=== PATIENT | female | born 1935 | race Caucasian/White ===

== ENCOUNTER 2017-01-15 07:46 | Day surgery (SDC) | payer OTHER ==
[2017-01-12 14:19] VITALS: BMI 24.3
[2017-01-15] MEDS ORDERED: LIDOCAINE HCL/PF 2% SDV 5ML VIAL ONE (08:15)
[2017-01-15] MEDS ORDERED: PROPOFOL 20 ML ONE ×2 (08:15)
[2017-01-15 09:02] VITALS: PULSE 60; TEMP 97.8
[2017-01-15 09:45] VITALS: BP 146/60
--- NOTE | 2017-01-16 13:02 | PATH ---
Surgical Pathology Report Patient Name: ANIKET MICHAUD [facility]. Rec. #: [id number] /Age/Gender: 1935 (Age: 81) / F Account: [id number] Location: U-ENDOSCOPY Taken: 01/15/2017 Received: 01/15/2017 Reported: 01/16/2017 Physicians: Leslye Moses M.D. Specimen(s) Received A: BX CECAL POLYP B: BX RIGHT COLON POLYP C: RECTAL/SIGMOID ANASTOMOSIS Clinical History Surveillance, history of colon cancer Colon polyps, patent rectal/sigmoid anastomosis Final Diagnosis A. COLON, CECUM, POLYP, BIOPSY: TUBULAR ADENOMA. B. COLON, RIGHT, POLYPS, BIOPSY: FRAGMENTS OF TUBULAR ADENOMA. C. RECTAL/SIGMOID ANASTOMOSIS, BIOPSY: BENIGN COLONIC MUCOSA WITH FOCAL ARCHITECTURAL DISARRAY CONSISTENT WITH ANASTOMOSIS SITE. NO DYSPLASIA/ADENOMA OR CARCINOMA IDENTIFIED. Electronically Signed Keanu Flores M.D. Gross Description A. Received in formalin, labeled "biopsy cecal polyp" are 4 kline, irregular portions of soft tissue ranging from 0.1-0.3 cm in greatest dimension. The specimens are submitted in toto in one cassette. B. Received in formalin labeled "biopsy right colon polyps" is a 0.7 x 0.5 x 0.1 cm aggregate of kline soft tissue fragments. The formalin is filtered and the specimen is entirely submitted in one cassette. C. Received in formalin, labeled "biopsy rectal sigmoid anastomosis" are 4 kline, irregular portions of soft tissue ranging from 0.3-0.4 cm in greatest dimension. The specimens are submitted in toto in one cassette. 01/15/201701/15/2017
== END 2017-01-15 09:57 | disposition home or self-care (01) ==
LOC: JASU-ENDO 07:46
PROVIDERS: ATTEND Internal Medicine Gastroenterology
PROC: 0DBN8ZX Excision of Sigmoid Colon, Via Natural or Artificial Opening Endoscopic, Diagnostic (ICD-10-PCS; 2017-01-15)
PROC: 0DBH8ZX Excision of Cecum, Via Natural or Artificial Opening Endoscopic, Diagnostic (ICD-10-PCS; 2017-01-15)
PROC: 0DBK8ZX Excision of Ascending Colon, Via Natural or Artificial Opening Endoscopic, Diagnostic (ICD-10-PCS; principal; 2017-01-15 09:00)
DX: Z12.11 Encounter for screening for malignant neoplasm of colon (principal); Z85.038 Personal history of other malignant neoplasm of large intestine; D12.2 Benign neoplasm of ascending colon; D12.0 Benign neoplasm of cecum; K57.30 Diverticulosis of large intestine without perforation or abscess without bleeding; Z98.0 Intestinal bypass and anastomosis status
CPT/HCPCS: 88305-TC

== ENCOUNTER 2017-12-08 19:24 | Emergency (ER) | payer OTHER ==
[2017-12-08 19:30] VITALS: BMI 22.5
--- NOTE | 2017-12-08 19:37 | PDOC ---
History of Present Illness - General History Source: Patient Exam Limitations: No Limitations - History of Present Illness Initial Comments: 12/08/17 20:24 The patient is a 82 year old female, with a significant PMH of hypertension, hyperlipidemia, fibroids, arthritis, pacemaker, who presents to the emergency department via walk-in for evaluation s/p fall 2 hours ago. The patient states she was walking outside when she tripped and fell onto her left side. The patient denies any loss of consciousness and states she was able to get up on her own and ambulate without difficulty after the fall. The patient denies any preceding lightheadedness, dizziness, chest pain, shortness of breath, palpitations, or nausea before the fall. The patient states after the fall she walked inside her house and her family advised her to come to the ED. The patient denies any pain. The patient states she is currently on aspirin. The patient denies chest pain, shortness of breath, headache and dizziness. Denies fever, chills, nausea, vomit, diarrhea and constipation. Denies dysuria, frequency, urgency and hematuria. Allergies: Penicillins Past surgical history: Hysterectomy, C - section. Social history: No reported PCP: Dr Singh <Nik Aleman - Last Filed: 12/08/17 22:29> <Marcelle Barnard - Last Filed: 12/09/17 00:25> - General Chief Complaint: Injury Stated Complaint: FALL INJURY Time Seen by Provider: 12/08/17 19:37 Past History <Nik Aleman - Last Filed: 12/08/17 22:29> - Past Medical History Cancer: Yes (COLON) Cardiac Disorders: Yes (IRREG HEART BEAT, PPM) COPD: No GI Disorders: Yes (DIVEYTICULOSIS;H.PYLOIR;COLON POLYPS) HTN: Yes Hypercholesterolemia: Yes - Surgical History Abdominal Surgery: Yes (COLON RESECTION) Appendectomy: Yes Cardiac Surgery: Yes (PACEMAKER) - Immunization History Immunization Up to Date: Yes - Suicide/Smoking/Psychosocial Hx Smoking Status: No Smoking History: Never smoked Have you smoked in the past 12 months: No Number of Cigarettes Smoked Daily: 0 Hx Alcohol Use: No Drug/Substance Use Hx: No Substance Use Type: None Hx Substance Use Treatment: No <Marcelle Barnard - Last Filed: 12/09/17 00:25> - Past Medical History Allergies/Adverse Reactions: Allergies Allergy/AdvReac Type Severity Reaction Status Date / Time Penicillins Allergy Verified 05/21/12 23:45 Home Medications: Ambulatory Orders Omeprazole 40 mg PO DAILY #1 08/19/11 Amlodipine Besylate [Norvasc -] 2.5 mg PO DAILY 12/07/14 Aspirin Coated [Ecotrin -] 81 mg PO DAILY #0 12/07/14 Calcium Carbonate/Vitamin D3 [Calcium 600-Vit D3 200 Tablet] 1 each PO DAILY 07/19 Cholecalciferol (Vitamin D3) [Vitamin D3] 1,000 unit PO DAILY 12/07/14 FA/Mv,Ca,Iron,Min/Lycopene/Lut [Centrum Tablet] 1 each PO DAILY 12/07/14 Losartan/Hydrochlorothiazide [Losartan-Hctz 100-25 mg Tablet] 1 each PO DAILY Sennosides [Senna -] 1 tab PO DAILY 12/07/14 Simvastatin [Zocor -] 5 mg PO HS 12/07/14 Sotalol HCl [Sotalol] 160 mg PO BID 12/07/14 Review of Systems - Review of Systems Comments:: 12/08/17 20:25 GENERAL/CONSTITUTIONAL: No fever or chills. No weakness. HEAD, EYES, EARS, NOSE AND THROAT: No change in vision. No ear pain or discharge. No sore throat. CARDIOVASCULAR: No chest pain or shortness of breath. RESPIRATORY: No cough, wheezing, or hemoptysis. GASTROINTESTINAL: No nausea, vomiting, diarrhea or constipation. GENITOURINARY: No dysuria, frequency, or change in urination. MUSCULOSKELETAL: No joint or muscle swelling or pain. No neck or back pain. SKIN: No rash NEUROLOGIC: No headache, vertigo, loss of consciousness, or change in strength/ sensation. ENDOCRINE: No increased thirst. No abnormal weight change. HEMATOLOGIC/LYMPHATIC: No anemia, easy bleeding, or history of blood clots. ALLERGIC/IMMUNOLOGIC: No hives or skin allergy. <Nik Aleman - Last Filed: 12/08/17 22:29> *Physical Exam - Vital Signs Last Vital Signs Temp Pulse Resp BP Pulse Ox 98.2 F 80 20 179/82 99 12/08/17 19:27 12/08/17 19:27 12/08/17 19:27 12/08/17 19:27 12/08/17 19:27 - Physical Exam Comments: 12/08/17 22:29 GENERAL: Awake, alert, and fully oriented, in no acute distress HEAD: (+) Hematoma on the left forehead lateral/ above the brow. (+) Bruising at the left upper and lower lids. (+) Tenderness at the left brow. No nasal bone tenderness. No inferior orbital tenderness. No zygoma tenderness on left. EYES: PERRLA, EOMI, sclera anicteric, conjunctiva clear ENT: Auricles normal inspection, hearing grossly normal, nares patent, oropharynx clear without exudates. Moist mucosa NECK: No c-spine tenderness. No neck tenderness. Normal ROM, supple, no lymphadenopathy, JVD, or masses LUNGS: Breath sounds equal, clear to auscultation bilaterally. No wheezes, and no crackles HEART: Regular rate and rhythm, normal S1 and S2, no murmurs, rubs or gallops ABDOMEN: Soft, nontender, normoactive bowel sounds. No guarding, no rebound. No masses EXTREMITIES: (+) Abrasion over the 4th knuckle. Normal range of motion, no edema. No clubbing or cyanosis. No cords, erythema, or tenderness NEUROLOGICAL: Cranial nerves II through XII grossly intact. Normal speech, normal gait. Good strength and reflexes. SKIN: Warm, Dry, normal turgor, no rashes or lesions noted. <Nik Aleman - Last Filed: 12/08/17 22:29> - Vital Signs Last Vital Signs Temp Pulse Resp BP Pulse Ox 98.2 F 80 20 179/82 99 12/08/17 19:27 12/08/17 19:27 12/08/17 19:27 12/08/17 19:27 12/08/17 19:27 <Marcelle Barnard - Last Filed: 12/09/17 00:25> ED Treatment Course - LABORATORY CBC & Chemistry Diagram: 12/08/17 20:08 12/08/17 20:08 - Medications Given in the ED: ED Medications Discontinued Medications Generic Name Dose Route Start Last Admin Trade Name Freq PRN Reason Stop Dose Admin Oxycodone/Acetaminophen 2 combo 12/08/17 20:08 12/08/17 20:20 Percocet 5/325 - PO 12/08/17 20:09 2 combo ONCE ONE Administration <Nik Aleman - Last Filed: 12/08/17 22:29> - LABORATORY CBC & Chemistry Diagram: 12/08/17 20:08 12/08/17 20:08 <Marcelle Barnard - Last Filed: 12/09/17 00:25> Medical Decision Making - Medical Decision Making 12/08/17 22:02 Pt appears to have an intracerebral bleed at the left frontal 12/08/17 22:13 Patient Name: ANIKET MICHAUD THIS IS A PRELIMINARY REPORT FROM [facility] DIRECT[facility] DATE OF SERVICE: 2017-12-08 20:53:56 IMAGES: [id number] Exam: CT head without IV contrast. Clinical indication:Trauma. Comparison:None available. Technique: Axial unenhanced CT images from the skull base through the brain were obtained followed by coronal and sagital reformats. Findings: The visualized bony structures are unremarkable. Note is again made of the hematoma in the left frontal scalp. There is moderate circumference thickening of the mucosa within the left maxillary sinus consistent with chronic sinusitis. Otherwise, the visualized paranasal sinuses and mastoid air cells are clear. There is no evidence of intra-or extra-axial hemorrhage. The ventricles and basilar cisterns are unremarkable. There is an old left frontal encephalomalacia from an old infarct. Areas mild-to -moderate periventricular hypodensities consistent with mild to moderate chronic small vessel ischemic changes. There is no evidence of intracranial mass, acute infarct, or midline shift. 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 2. Mild to moderate chronic small vessel ischemic changes. 3. Chronic left maxillary sinusitis. 4. Otherwise, negative unenhanced CT of the brain. Individualized dose optimization techniques were used for this CT. THIS DOCUMENT HAS BEEN ELECTRONICALLY SIGNED 12/08/17 22:15 Patient Name: ANIKET MICHAUD THIS IS A PRELIMINARY REPORT FROM [facility] DATE OF SERVICE: 2017-12-08 20:55:51 IMAGES: [id number] Exam: CT facial bones without IV contrast. Clinical indication: Trauma. Technique: Axial CT images of the facial bones were obtained followed by coronal and sagittal reformats. Findings: The mandible is intact. Temporomandibular joints are appropriately situated. The maxilla is intact. The orbital rims are intact. The bilateral zygomatic arches are intact. The nasal bones are intact. Visualized portions of the cranial skull and cervical spine are intact. There is moderate circumferential mucosal thickening within the left maxillary sinus suggesting chronic left maxillary sinusitis. Otherwise, the visualized paranasal sinuses and mastoid air cells are clear. There is a left frontal scalp hematoma. Visualized soft tissues are grossly unremarkable. Impression: 1. No acute facial bone fracture. 2. Moderate chronic left maxillary sinusitis. 12/08/17 22:[address] Espitia, pt's PMD, she has a hx of an old infarct/frontal bleed. I will discuss the CT with neurosurgeon. Pt's exam is normal, labs are normal, and CT scans demonstate no acute fx or finding. 12/08/17 22:26 Patient Name: ANIKET MICHAUD THIS IS A PRELIMINARY REPORT FROM [facility] DATE OF SERVICE: 2017-12-08 20:50:31 IMAGES: [id number] Exam: CT cervical spine without IV contrast. Clinical indication:Trauma. Prior studies:None available. Technique: Axial unenhanced CT images from the upper thoracic spine through the skull base were obtained followed by coronal and sagittal reformats. Findings: There is no prevertebral soft tissue swelling. The alignment of the cervical spine is within normal limits. The odontoid is intact. The atlantooccipital and atlantoaxial articulations are properly situated. There are no cervical fractures or dislocations. There is multilevel cervical degenerative disc disease seen throughout the cervical spine, but no definite significant spinal stenosis or neural foraminal narrowing. Visualized pulmonary parenchyma and soft tissues are unremarkable. Impression: No acute cervical fracture. Individualized dose optimization techniques were used for this CT. THIS DOCUMENT HAS BEEN ELECTRONICALLY SIGNED 12/09/17 00:24 Case d/w neurosurg, who reveied the CT from 2009 that demonstrates the old frontal stroke. Pt will be discharged home with follow up with Dr. Singh <Marcelle Barnard - Last Filed: 12/09/17 00:25> *DC/Admit/Observation/Transfer - Attestations Scribe Attestion: 12/08/17 20:25 Documentation prepared by Nik Aleman, acting as bilingual medical assistant for Marcelle Barnard MD. <Nik Aleman - Last Filed: 12/08/17 22:29> - Discharge Dispostion Decision to Admit order: No <Marcelle Barnard - Last Filed: 12/09/17 00:25> Diagnosis at time of Disposition: Head contusion - Discharge Dispostion Disposition: HOME Condition at time of disposition: Stable - Referrals Referrals: Reji Singh MD [Staff Physician] - - Patient Instructions Printed Discharge Instructions: Closed Head Injury, Post-Traumatic Headache
[2017-12-08 20:23] LABS: BASO % 0.7 % (0-2.0); EOS % 3.2 % (0-4.5); HEMATOCRIT 37.5 % (32.4-45.2); HEMOGLOBIN 13.3 GM/dL (10.7-15.3); LYMPH % 18.4 % (8-40); MCH 28.7 pg (25.7-33.7); MCHC 35.4 g/dl (32.0-36.0); MEAN PLT VOLUME 7.7 fl (7.5-11.1); MONO % 7.1 % (3.8-10.2); NEUT % 70.6 % (42.8-82.8); PLATELET COUNT 209 K/MM3 (134-434); RBC 4.63 M/mm3 (3.60-5.2); RDW 14.7 % (11.6-15.6); WHITE BLOOD COUNT 5.4 K/mm3 (4.0-10.0)
[2017-12-08 20:53] LABS: ANION GAP 10 (8-16); BILIRUBIN,TOTAL 0.4 mg/dL (0.2-1.0); BLOOD UREA NITROGEN 15 mg/dL (7-18); CALCIUM 10.1 mg/dL (8.5-10.1); CHLORIDE 98 mmol/L (98-107); CO2 26 mmol/L (21-32); CREATININE 0.7 mg/dL (0.55-1.02); GLUCOSE,RANDOM 141 mg/dL (74-106); POTASSIUM 3.8 mmol/L (3.5-5.1); SGOT/AST 22 U/L (15-37); SGPT/ALT 27 U/L (12-78); SODIUM 134 mmol/L (136-145); TOT PROT 6.8 g/dl (6.4-8.2)
[2017-12-08 20:54] LABS: ALK PHOS 121 U/L (45-117)
[2017-12-08 21:53] LABS: URINE APPEARANCE CLEAR; URINE BILIRUBIN NEGATIVE (<2.0 mg/dL); URINE COLOR LTYELLOW; URINE GLUCOSE (UA) NEGATIVE (NEGATIVE); URINE KETONE NEGATIVE (NEGATIVE); URINE NITRITE NEGATIVE (NEGATIVE); URINE PROTEIN NEGATIVE (NEGATIVE); URINE UROBILINOGEN NEGATIVE mg/dL (0.2-1.0)
[2017-12-08 21:56] LABS: URINE LEUK ESTERASE 1+ (NEGATIVE)
[2017-12-08 21:58] LABS: EPI CELLS RARE /HPF (FEW); URINE MUCUS RARE
[2017-12-08] MEDS ORDERED: DIPHTH,PERTUSS(ACELL),TET VAC 0.5 ML VIAL IM ONE (22:24)
[2017-12-08] MEDS ORDERED: BACITRACIN 15 GM TUBE TOPICAL OINTMENT TP ONE (23:37)
[2017-12-08] MEDS ORDERED: BACITRACIN 0.9 GM PACKET ONE (23:40)
[2017-12-08 23:54] VITALS: BP 133/72; PULSE 69; TEMP 97.9
--- NOTE | 2017-12-09 20:03 | EKG ---
Test Reason : Blood Pressure : / mmHG Vent. Rate : 065 BPM Atrial Rate : 065 BPM P-R Int : 142 ms QRS Dur : 118 ms QT Int : 408 ms P-R-T Axes : 103 048 020 degrees QTc Int : 424 ms POOR DATA QUALITY, INTERPRETATION MAY BE ADVERSELY AFFECTED NORMAL SINUS RHYTHM INCOMPLETE RIGHT BUNDLE BRANCH BLOCK BORDERLINE ECG WHEN COMPARED WITH ECG OF 21-MAY-2012 23:55, INCOMPLETE RIGHT BUNDLE BRANCH BLOCK HAS REPLACED RIGHT BUNDLE BRANCH BLOCK QT HAS SHORTENED Confirmed by RADHA PLAZA, CAMILA ([id number]) on 12/09/2017 8:03:01 PM Referred By: Confirmed By:CAMILA GARCIA MD
== END 2017-12-08 23:53 | disposition home or self-care (01) ==
LOC: JER 19:24
PROC: 3E0234Z Introduction of Serum, Toxoid and Vaccine into Muscle, Percutaneous Approach (ICD-10-PCS; principal; 2017-12-08)
DX: S00.93XA Contusion of unspecified part of head, initial encounter (principal); W18.39XA Other fall on same level, initial encounter; Y93.89 Activity, other specified; Y92.009 Unspecified place in unspecified non-institutional (private) residence as the place of occurrence of the external cause; Z95.0 Presence of cardiac pacemaker; Z85.038 Personal history of other malignant neoplasm of large intestine; I10 Essential (primary) hypertension; E78.00 Pure hypercholesterolemia, unspecified; I49.9 Cardiac arrhythmia, unspecified
CPT/HCPCS: 36415; 70450-TC; 70486-TC; 71046-TC-FY; 72125-TC; 73130-TC-RT-FY; 73610-TC-LT-FY; 73630-TC-LT; 80053; 81003; 81015; 82550; 84484; 85025; 93005; 93010; 99282-25

== ENCOUNTER 2019-12-22 13:36 | Inpatient (IN) | payer OTHER ==
--- NOTE | 2019-12-22 15:15 | PDOC ---
History of Present Illness - General Chief Complaint: Injury Stated Complaint: SLIP AND FALL Time Seen by Provider: 12/22/19 14:59 - History of Present Illness Initial Comments: HPI Pt is a 84yo F with PMH HTN,HLD who presents following fall. Pt states that she was walking in her condo around 11am when she slipped and fell. Denies any loss of consciousness. States that she fell onto her left side and is reporting L wrist/forearm pain and L hip pain. States that she cannot move her left leg due to pain and has been unable to ambulate since injury. Initially denied head trauma, but when asked about hematoma on eyebrow, states that she may have injured the left side of her head. Denies use of blood thinners. Denies any f/c, headache, neck pain, back pain, chest pain, SOB, abdominal pain, dizziness /lightheadedness. Per daughter's history, patient has had increased weakness and decreased ambulat ion since July. Daughter states that patient has been limited to walking with a cane inside apartment and attempted to walk to the bank today. States that mother has a history of arthritis and disc herniation. PCP: Commentucci PMH: see HPI PSH: denies Meds: see chart Allergies: penicillin Review of Systems CONSTITUTIONAL:denies fever, chills, diaphoresis, generalized weakness HEENT:denies rhinorrhea, nasal congestion, sore throat CARDIOVASCULAR:denies chest pain, syncope, palpitations, lightheadedness, peripheral edema RESPIRATORY:denies cough, shortness of breath, wheezing GASTROINTESTINAL: denies abdominal pain, nausea, vomiting, diarrhea, constipation, melena, hematochezia GENITOURINARY:denies dysuria, frequency, hematuria, flank pain MUSCULOSKELETAL:denies myalgia, arthralgia, neck pain, back pain HEMATOLOGIC/IMMUNOLOGIC:denies easy bleeding, easy bruising NEUROLOGIC:denies headache, loss of consciousness, focal weakness or paresthesias, dizziness, mental status changes, bladder or bowel incontinence SKIN:denies rash, itching, pallor Physical Exam General: awake, alert, fully oriented, in no acute distress, well developed, well nourished Head: normocephalic, 2cm hematoma above L eyebrow Eyes: PERRL, EOMI, anicteric sclera, conjunctiva clear ENT: hearing grossly normal, TMs clear bilaterally, oropharynx clear without exudates. Moist mucous membranes Neck: supple, normal ROM Lung: equal breath sounds b/l, CTA b/l, no crackles, wheezes; no distress, speaks full sentences Heart: RRR, normal S1, S2, no murmurs appreciated Abdomen: soft, non tender, normoactive bowel sounds, no guarding, rebound, masses Extremities: limited ROM of L wrist and L thigh; dinner fork deformity of L wrist, edema above L wrist, scaphoid tenderness, radial/DP/PT pulses 2+ and symmetric, intact ROM about L shoulder, elbow, L knee, L ankle. Neuro: CN2-12 grossly intact, normal speech, sensation intact Skin: warm, dry Past History - Medical History Allergies/Adverse Reactions: Allergies Allergy/AdvReac Type Severity Reaction Status Date / Time Penicillins Allergy Verified 12/22/19 13:41 Home Medications: Ambulatory Orders Omeprazole 40 mg PO DAILY #1 08/19/11 Amlodipine Besylate [Norvasc -] 2.5 mg PO DAILY 12/07/14 Aspirin Coated [Ecotrin -] 81 mg PO DAILY #0 12/07/14 Calcium Carbonate/Vitamin D3 [Calcium 600-Vit D3 200 Tablet] 1 each PO DAILY 12/07/14 Cholecalciferol (Vitamin D3) [Vitamin D3] 1,000 unit PO DAILY 12/07/14 FA/Mv,Ca,Iron,Min/Lycopene/Lut [Centrum Tablet] 1 each PO DAILY 12/07/14 Losartan/Hydrochlorothiazide [Losartan-Hctz 100-25 mg Tablet] 1 each PO DAILY 12/07/14 Sennosides [Senna -] 1 tab PO DAILY 12/07/14 Simvastatin [Zocor -] 5 mg PO HS 12/07/14 Sotalol HCl [Sotalol] 160 mg PO BID 12/07/14 Cancer: Yes (COLON) Cardiac Disorders: Yes (IRREG HEART BEAT, PPM) COPD: No GI Disorders: Yes (DIVEYTICULOSIS;H.PYLOIR;COLON POLYPS) HTN: Yes Hypercholesterolemia: Yes - Surgical History Abdominal Surgery: Yes (COLON RESECTION) Appendectomy: Yes Cardiac Surgery: Yes (PACEMAKER) - Immunization History Immunization Up to Date: Yes - Psycho-Social/Smoking History Smoking Status: No Smoking History: Never smoked Have you smoked in the past 12 months: No Number of Cigarettes Smoked Daily: 0 - Substance Abuse Hx (Audit-C & DAST Scrn) How often the patient has a drink containing alcohol: Never Score: In Men: 4 or > Positive; In Women: 3 or > Positive: 0 Screen Result (Pos requires Nsg. Audit-10AR): Negative In the last yr the pt used illegal drug/Rx for NonMed reason: No Score: Yes response is considered Positive: 0 Screen Result (Positive result requires Nsg. DAST-10): Negative *Physical Exam - Vital Signs Last Vital Signs Temp Pulse Resp BP Pulse Ox 97.9 F 68 18 131/64 97 12/22/19 13:41 12/22/19 13:41 12/22/19 13:41 12/22/19 13:41 12/22/19 13:41 ED Treatment Course - LABORATORY CBC & Chemistry Diagram: 12/22/19 16:40 12/22/19 16:40 Medical Decision Making - Medical Decision Making Pt is 84yo F with PMH HTN, HLD who presents with wrist and hip pain following mechanical fall DDx: scaphoid fracture, pelvic fracture, femur fracture, Colles fracture Plan: labs, imaging, EKG 12/22/19 18:20 CT head: no acute intracranial pathology, chronic left frontal cortical infarct (seen on 2018 CT) C spine: no fracture or posttraumatic misalignment Labs: no leukocytosis, no anemia, electrolytes WNL, no LOLIS, LFT WNL 12/22/19 18:27 wrist xray: distal end of radius dorsally displaced pelvic xray: no acute fracture appreciated Consulted Dr. Norman (ortho) 12/22/19 20:34 EKG: normal sinus rhythm, HR 64bpm, ID 136ms, QRS 110ms, QTc 445ms fracture reduced with Dr. Norman pending post reduction xray will attempt to walk patient 12/22/19 21:03 Pt unable to bear weight Will order hip and femur CT 12/22/19 23:00 CT with no acute fracture as read by ED staff Will admit patient to Dr. Singh Reports L wrist pain, will order Toradol Disposition Admit Discharge - Discharge Information Problems reviewed: Yes Clinical Impression/Diagnosis: Hip pain, left, Deformity of left wrist, Fall from ground level Condition: Stable - Admission Yes - Follow up/Referral Referrals: Reji Singh MD [Primary Care Provider] - Chema Norman DO [Staff Physician] - - Patient Discharge Instructions Patient Printed Discharge Instructions: DI for Wrist Fracture Additional Instructions: Discharge Instructions: You were seen in the emergency department for an injury to your wrist. You were found to have a sprain/fracture of your distal radius (wrist) You had a splint placed to help the wrist sprain/fracture heal. Home Care: - You will most likely have pain, swelling and bruising for at least the next week. These should improve over time. - Keep your splint in place - Keep the splint dry. Avoid showering, we recommend sponge baths. You may cover the splint with a plastic bag, rubber band over the end, to shower. - Apply ice as much as possible for the next 2-3 days. This will help reduce pain and swelling. - Elevate your hand above the level of your elbow whenever possible. Use the sling provided during the day to help you keep your hand elevated. - Use ibuprofen (Advil or Motrin) 400mg or acetaminophen (Tylenol) 650mg every 6 hours as needed for pain. These may be alternated every 3 hours if needed for severe pain. - If your fingers become swollen or feel numb, take the SEBAS wrap off your splint. Replace the SEBAS loosely or return to the ED. Follow Up: - You need to follow up with orthopedics within the next 10-14 days for evaluation of your fracture. You have been given contact information for Dr Norman. Call as soon as possible to schedule an appointment. - Seek immediate care if you have severe pain, your fingers become numb (and do not improve with removal of the wrap), your fingers are cold or blue, you have severe swelling or redness, or you have any other medical emergency. - Post Discharge Activity
[2019-12-22] MEDS ORDERED: ACETAMINOPHEN 500 MG TABLET (FP) PO ONE (15:58)
[2019-12-22] MEDS ORDERED: morphine CARPU-JECT 2 MG/1 ML DISP.SYRIN IVPUSH ONE (16:03)
--- NOTE | 2019-12-22 16:14 | PDOC ---
Documentation entered by Elyse Benson SCRIBE, acting as scribe for Becky Motley MD. Becky Motley MD: This documentation has been prepared by the shandraibe, Elyse Benson SCRIBE, under my direction and personally reviewed by me in its entirety. I confirm that the documentation accurately reflects all work, treatment, procedures, and medical decision making performed by me. Attending Attestation - Resident Resident Name: Chelita Vallecillo - ED Attending Attestation I have performed the following: I have examined & evaluated the patient, The case was reviewed & discussed with the resident, I agree w/resident's findings & plan, Exceptions are as noted - HPI HPI: 12/22/19 15:31 Patient is an 84 year old female with a significant past medical history of hypertension, hyperlipidemia, fibroids, arthritis, pacemaker, who presents to the ED with stated mechanical fall now with left hip pain and inability to ambulate. States she slipped and fell, remembers the entire event and how she fell. She noted having hit her left jain on the ground. She denies any LOC, preceding symptoms, recently has not been feeling ill at all. - Physicial Exam PE: 12/22/19 15:54 GENERAL: elderly, nontoxic-appearing, no distress, answers questions appropriately, very pleasant HEENT: left jain and superior lateral periorbital contusion, no obvious facial deformity, no cephalohematoma, no scalp laceration, no raccoon eyes, no proptosis, PERRLA, EOMI without pain, no nasal septal hematoma, no obvious CSF rhinorrhea, no epistaxis, no jaw malocclusion, no loose teeth, no kaur sign, no hemotympanum, no obvious CSF otorrhea NECK/BACK: no midline ttp, no spinal stepoff or deformity, no hematoma, full ROM, neck supple CARDIOVASCULAR: regular rate/rhythm, no MGR, strong peripheral pulses, capillary refill <2 seconds, extremities wwp, no edema LUNGS/RESPIRATORY: no respiratory distress, CTAB GI/ABDOMEN: symmetric [id number], normoactive BS, soft, no ttp, no midline pulsatile masses : no CVA tenderness MSK/EXTREMITIES: left snuffbox tenderness, left wrist pain and obvious distal radius deformity, left hip stated pain on ROM and tenderness from lateral hip to medial inguinal region, but appears to have full active ROM without deficit, distal pulses intact, thigh compartments soft, no acute-appearing muscle atrophy, no acute deformity, no shortening or rotation DERM/SKIN: warm and dry, no pallor, no jaundice, no rash, no pathologic- appearing bruising, no skin breakdown, no cuts, no lesions NEUROLOGICAL: GCS 15, CN II-XII grossly intact, 5/5 strength proximally and distally, no facial droop - Medical Decision Making 12/22/19 16:03 84YOF p/w GLF with subsequent left wrist and hip pain, inability to walk. Initial Vital Signs Temp Pulse Resp BP Pulse Ox 97.9 F 68 18 131/64 97 12/22/19 13:41 12/22/19 13:41 12/22/19 13:41 12/22/19 13:41 12/22/19 13:41 Most likely wrist fracture (dital radius vs. both bone), possible scaphoid fracture as well. There is some possibility of fracture/dislocation as well. Hip pain after fall is most likely hip/pelvis/femur fxr, less likely hip dislocation, exam inconsistent with thigh hematoma, compartment syndrome, etc. NPO until further notice. Provider Orders Category Date Time Status TYPE AND SCREEN Stat Blood Bank 12/22/19 16:[address] W/O CONTR [CT] Stat CT Scan 12/22/19 15:[address] WITHOUT CONTRAST [CT] Stat CT Scan 12/22/19 15:58 Ordered ELECTROCARDIOGRAM [CARD] Stat Cardiology 12/22/19 16:05 Ordered EKG needed NOW Care 12/22/19 16:06 Active ACTIVATED PTT Stat Lab 12/22/19 16:05 Uncollected CBC WITH DIFFERENTIAL Stat Lab 12/22/19 16:05 Uncollected COMP METABOLIC PANEL Stat Lab 12/22/19 16:05 Uncollected PT/INR (PROTHROMBIN TIME) Stat Lab 12/22/19 16:05 Uncollected Acetaminophen [Tylenol -] Medication 12/22/19 15:58 Discontinued 1,000 mg PO ONCE ONE Morphine Injection - Medication 12/22/19 16:03 Discontinued 2 mg IVPUSH ONCE ONE HIP & PELVIS-LEFT [RAD] Stat Radiology 12/22/19 15:57 Ordered WRIST W/HAND-LEFT* [RAD] Stat Radiology 12/22/19 15:57 Ordered Medications Discontinued Medications Generic Name Dose Route Start Last Admin Trade Name Araseli PRN Reason Stop Dose Admin Acetaminophen 1,000 mg 12/22/19 15:58 Tylenol - PO 12/22/19 15:59 ONCE ONE Morphine Sulfate 2 mg 12/22/19 16:03 Morphine Injection - IVPUSH 12/22/19 16:04 ONCE ONE Patient's care endorsed to swing attending at the end of my shift pending imaging and dispo planning. Patient is stable. Discharge - Discharge Information Problems reviewed: Yes Clinical Impression/Diagnosis: Hip pain, left, Deformity of left wrist, Fall from ground level - Follow up/Referral Referrals: Reji Singh MD [Primary Care Provider] - - Patient Discharge Instructions - Post Discharge Activity
[2019-12-22] MEDS ORDERED: ACETAMINOPHEN 325 MG TABLET (FP) ONE (16:23)
[2019-12-22] MEDS ORDERED: MORPHINE SULFATE 2 MG/ML VIAL ONE (16:24)
[2019-12-22 17:06] LABS: BASO % 0.3 % (0-2.0); EOS % 0.4 % (0-4.5); HEMATOCRIT 37.1 % (32.4-45.2); HEMOGLOBIN 12.7 GM/dL (10.7-15.3); LYMPH % 8.1 % (8-40); MCH 29.3 pg (25.7-33.7); MCHC 34.2 g/dl (32.0-36.0); MEAN CELL VOLUME 85.8 fl (80-96); MEAN PLT VOLUME 7.9 fl (7.5-11.1); MONO % 5.8 % (3.8-10.2); NEUT % 85.4 % (42.8-82.8); PLATELET COUNT 189 K/MM3 (134-434); RBC 4.32 M/mm3 (3.60-5.2); RDW 15.7 % (11.6-15.6); WHITE BLOOD COUNT 7.3 K/mm3 (4.0-10.0)
[2019-12-22 17:17] LABS: INR 0.97 (0.83-1.09); PROTHROMBIN TIME (PATIENT) 11.4 SEC (9.7-13.0)
[2019-12-22 17:19] LABS: ACTIVATED PTT 28.3 SECONDS (25.2-36.5)
[2019-12-22 17:33] LABS: BILIRUBIN,TOTAL 0.8 mg/dL (0.2-1); BLOOD UREA NITROGEN 15.7 mg/dL (7-18); CALCIUM 10.2 mg/dL (8.5-10.1); CREATININE 0.5 mg/dL (0.55-1.3); POTASSIUM 3.8 mmol/L (3.5-5.1); TOT PROT 6.5 g/dl (6.4-8.2)
[2019-12-22] MEDS ORDERED: LIDOCAINE HCL 1%, 10 MG/ML (50 mL VIAL) INF ONE (19:12)
[2019-12-22] MEDS ORDERED: LIDOCAINE HCL 1%, 10 MG/ML (20ML VIAL) ONE (19:14)
[2019-12-22] MEDS ORDERED: ASPIRIN 81 MG CHEWABLE TABLETS ONE (19:59)
[2019-12-22] MEDS ORDERED: MECLIZINE HCL 25 MG TABLET (FP) ONE (20:00)
--- NOTE | 2019-12-22 20:32 | CONSULT ---
Consult - text type - Consultation Consultation Note: ORTHOPEDIC SURGERY CONSULTATION NOTE Department of Orthopedic Surgery HISTORY OF PRESENT ILLNESS Ms. George is a 84 year old right hand dominant female with a significant past medical history of hypertension, hyperlipidemia, fibroids, arthritis, pacemaker, who presents to the ED with stated mechanical fall now with left hip pain and inability to ambulate. States she slipped and fell, remembers the entire event and how she fell. who presents to [facility] ER with a left wrist pain. The orthopedic service was consulted for a left distal radius fracture. The patient notes pain and swelling at her left wrist, painful with movement. Denies numbness, tingling or other constitutional complaints. Denies tobacco use, drug use, alcohol abuse. The patient lives alone and uses no assistive devices at baseline. FAMILY HISTORY non-contributory REVIEW OF SYMPTOMS A twelve-point review of systems was performed and was negative except as noted in HPI. PHYSICAL EXAM Constitutional: Alert and oriented to person, place, and time. Appears well- developed and well-nourished. No acute distress, appropriate mood and affect. Right Upper Extremity: Skin warm, dry, and intact; no lesions, rashes or ulcers noted. Muscle mass equal and symmetric to contralateral side. No atrophy noted. No masses or effusions noted. No tenderness to palpation all joints; nontender throughout rest of extremity. Full passive and active ROM, free from pain. Joints stable with no pathologic laxity. M/R/U/MSK/AX motor intact; SILT distally; 2+ radial pulses; Cap refill brisk. Tone and reflexes normal. Left Upper Extremity: Skin warm, dry, and intact; no lesions, rashes or ulcers noted. Muscle mass equal and symmetric to contralateral side. No atrophy noted. No masses or effusions noted. Tender to palpation at distal radius; nontender throughout rest of extremity. Full passive and active ROM of the shoulder and elbow, free from pain. Left wrist LROM secondary to pain and swelling; Joints otherwise stable with no pathologic laxity. M/R/U/MSK/AX motor intact; SILT distally; 2+ radial pulses; Cap refill brisk. Tone and reflexes normal. Right Lower Extremity: Skin warm, dry, and intact; no lesions, rashes or ulcers noted. Muscle mass equal and symmetric to contralateral side. No atrophy noted. No masses or effusions noted. No tenderness to palpation all joints; nontender throughout rest of extremity. No cords or calf tenderness; Negative log roll test; Negative SLR; No significant calf/ankle edema. Full passive and active ROM, free from pain. Joints stable with no pathologic laxity. EHL/TA/GS motor intact; SILT distally; 2+ DP pulses; Cap refill brisk. Tone and reflexes normal. Left Lower Extremity: Skin warm, dry, and intact; no lesions, rashes or ulcers noted. Muscle mass equal and symmetric to contralateral side. No atrophy noted. No masses or effusions noted. No tenderness to palpation all joints; nontender throughout rest of extremity. No cords or calf tenderness; Negative log roll test; Negative SLR; No significant calf/ankle edema. Full passive and active ROM, free from pain. Joints stable with no pathologic laxity. EHL/TA/GS motor intact; SILT distally; 2+ DP pulses; Cap refill brisk. Tone and reflexes normal. Active Problems Problem Status Category Onset Deformity of left wrist Acute Medical Fall from ground level Acute Medical Hip pain, left Acute Medical Social History Smoking history Never smoked Aproximately how many 0 cigarettes per day Hx Alcohol Use No Allergies Allergy/AdvReac Type Severity Reaction Status Date / Time Penicillins Allergy Verified 12/22/19 13:41 Vital Signs (last) Temp Pulse Resp BP Pulse Ox 97.9 F 68 18 131/64 97 12/22/19 13:41 12/22/19 13:41 12/22/19 13:41 12/22/19 13:41 12/22/19 13:41 Intake and Output 12/20/19 12/21/19 12/22/19 23:59 23:59 23:59 Other: Weight 100 lb Height 4 ft 7 in Body Mass Index (BMI) 23.2 Laboratory 12/22/19 16:40 12/22/19 16:40 PT with INR 11.40 SEC (9.7-13.0) 12/22/19 16:40 PTT (Actin FS) 28.3 SECONDS (25.2-36.5) 12/22/19 16:40 IMAGING I personally reviewed all radiographs, CT, and other imaging. They demonstrate a displaced and angulated distal radius fracture. Post reduction X-rays demonstrate a reduced distal radius fracture. ASSESSMENT AND PLAN Ms. George is a 84 year old female presenting status post mechanical fall with a left sided distal radius fracture. We have reviewed the imaging and clinical findings in detail, as well as their potential implications. After appropriate informed discussion, a reduction maneuver was performed and the patient was placed in a well-padded sugar tong splint and sling. Patient was instructed regarding: non weight bearing on fractured side. signs and symptoms of compartment syndrome and need to seek immediate care should new onset numbness, tingling, or significantly increasing pain occur. maintain strict elevation above the level of the heart for the next 3-4 days. keeping the splint clean and dry. avoiding NSAID medications. - Patient and patient's daughter at bedside were informed about being able to possibly further reduce her fracture in position, and they refused to have me further reduce her wrist. I described the risks and benefits of leaving it in its current position and they accepted these risks and did not want to proceed with another reduction. All questions were answered. Thank you for involving our team in the care of this patient. Please have patient follow up in our office in 1-2 weeks [phone]. PROCEDURE NOTE: After informed consent by the patient and her daughter at bedside, 10cc's were injected as a hematoma block into her wrist fracture. A reduction manuever was performed, and the patient was placed into a well padded sugartong splint and placed in a sling. She tolerated the procedure well, and her physical exam was unchanged. NVI distally, motor intact distally.
--- NOTE | 2019-12-22 21:10 | PDOC ---
Documentation entered by Clovis Barrett SCRIBE, acting as scribe for Giorgio Lewis DO. Giorgio Lewis DO: This documentation has been prepared by the Nena barron Xhesika, SCRIBE, under my direction and personally reviewed by me in its entirety. I confirm that the documentation accurately reflects all work, treatment, procedures, and medical decision making performed by me. *Physical Exam - Vital Signs Last Vital Signs Temp Pulse Resp BP Pulse Ox 97.9 F 68 18 131/64 97 12/22/19 13:41 12/22/19 13:41 12/22/19 13:41 12/22/19 13:41 12/22/19 13:41 ED Treatment Course - LABORATORY CBC & Chemistry Diagram: 12/24/19 06:55 12/24/19 06:55 - ADDITIONAL ORDERS Additional order review: Laboratory Results 12/22/19 12/22/19 16:40 16:40 PT with INR 11.40 INR 0.97 PTT (Actin FS) 28.3 Sodium 137 Potassium 3.8 Chloride 104 Carbon Dioxide 24 Anion Gap 10 BUN 15.7 Creatinine 0.5 L Est GFR (CKD-EPI)AfAm 101.57 Est GFR (CKD-EPI)NonAf 87.64 Random Glucose 93 Calcium 10.2 H Total Bilirubin 0.8 AST 25 ALT 30 Alkaline Phosphatase 110 Total Protein 6.5 Albumin 4.0 12/22/19 16:40 RBC 4.32 MCV 85.8 MCHC 34.2 RDW 15.7 H MPV 7.9 Neutrophils % 85.4 H D Lymphocytes % 8.1 D Monocytes % 5.8 Eosinophils % 0.4 D Basophils % 0.3 Medical Decision Making - Medical Decision Making 12/22/19 17:40 84y/o F singed out for follow up imagining. Pt fell on L side injuring her L wrist and hit her head denies Syncope, PE: Deformity distal L radius , neuro intact, no wrist drop Tender at L hip with ROM intact, no foot drop small area of ecchymosis above L eyebrow A/P: f/o image consult ortho r/o ich splint wrist 01/11/20 19:25 Discharge - Discharge Information Problems reviewed: Yes Clinical Impression/Diagnosis: Hip pain, left, Deformity of left wrist, Fall from ground level Condition: Stable Disposition: [facility]ENTIARY FACILITY - Follow up/Referral - Patient Discharge Instructions - Post Discharge Activity
[2019-12-22] MEDS ORDERED: POLYETHYLENE GLYCOL 3350 119 GM BTL PO ONE (23:07)
[2019-12-22] MEDS ORDERED: KETOROLAC TROMETHAMINE 15 MG/ML VIAL IVPUSH ONE (23:07)
[2019-12-22] MEDS ORDERED: HYDROmorphone HCL 2 MG TABLET PO PRN (23:23)
[2019-12-23] MEDS ORDERED: KETOROLAC TROMETHAMINE 15 MG/ML VIAL ONE (01:33)
[2019-12-23] MEDS ORDERED: HYDROmorphone HCL 2 MG TABLET ONE (04:50)
[2019-12-23 07:07] LABS: HEMATOCRIT 33.7 % (32.4-45.2); HEMOGLOBIN 11.7 GM/dL (10.7-15.3); MCH 29.8 pg (25.7-33.7); MCHC 34.7 g/dl (32.0-36.0); MEAN CELL VOLUME 85.8 fl (80-96); MEAN PLT VOLUME 7.6 fl (7.5-11.1); PLATELET COUNT 157 K/MM3 (134-434); RBC 3.92 M/mm3 (3.60-5.2); RDW 15.6 % (11.6-15.6); WHITE BLOOD COUNT 4.3 K/mm3 (4.0-10.0)
[2019-12-23 07:32] LABS: BLOOD UREA NITROGEN 18.8 mg/dL (7-18); CALCIUM 9.4 mg/dL (8.5-10.1); CREATININE 0.6 mg/dL (0.55-1.3); MAGNESIUM 2.4 mg/dL (1.8-2.4); POTASSIUM 3.9 mmol/L (3.5-5.1)
--- NOTE | 2019-12-23 09:08 | EKG ---
Test Reason : Blood Pressure : / mmHG Vent. Rate : 064 BPM Atrial Rate : 064 BPM P-R Int : 136 ms QRS Dur : 110 ms QT Int : 432 ms P-R-T Axes : 073 082 022 degrees QTc Int : 445 ms NORMAL SINUS RHYTHM INCOMPLETE RIGHT BUNDLE BRANCH BLOCK BORDERLINE ECG WHEN COMPARED WITH ECG OF 08-DEC-2017 20:09, NO SIGNIFICANT CHANGE WAS FOUND Confirmed by Jamin Shaw MD ([id number]) on 12/23/2019 9:08:11 AM Referred By: Confirmed By:Jamin Shaw MD
[2019-12-23 09:46] VITALS: BMI 24.5
[2019-12-23] MEDS ORDERED: LOSARTAN 50MG/HCTZ 12.5MG 1 TAB (FP) PO SCH (10:00)
[2019-12-23] MEDS: SOTALOL HCL 80 MG TABLET (FP) PO SCH ×2 (12:15→22:44)
[2019-12-23] MEDS: DEXTROSE 5%-0.45% SALINE 1,000 ML IV SCH (12:32)
[2019-12-23] MEDS: ENOXAPARIN NA (PORCINE) 40 MG/0.4 ML DISP.SYRIN SQ SCH (12:33)
[2019-12-23] MEDS: PANTOPRAZOLE 40 MG TABLET PO SCH (12:33)
--- NOTE | 2019-12-23 15:58 | HP ---
Admitting History and Physical - Primary Care Physician PCP: Reji Singh - Admission Chief Complaint: pain after falling History of Present Illness: Patient is an 84 year old female with a significant past medical history of hypertensive heart Dz, diffuse degen OA; gait dysf, hyperlipidemia, pacemaker dep, who presents to the ED with stated mechanical fall take occured while walking on sidewalk, with resulting LT UE pain and inability to walk. She has had various mechanical falls mainly outdoors under circumstances where she loses balance. States she slipped and fell, remembers the entire event and how she fell. She noted having hit her left sikhism on the ground. She denies any LOC, preceding symptoms, recently has not been feeling ill at all. 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) Cardiovascular: Yes: CAD, HTN, Hyperlipdemia, Other (SVT Hx) Gastrointestinal: Yes: GERD ...: No Psych: Yes: Anxiety Musculoskeletal: Yes: Osteoarthritis (affecting nearly all joints) Endocrine: Yes: Hyperparathyroidism, Other (osteoporosis) - Smoking History Smoking history: Never smoked Have you smoked in the past 12 months: No Aproximately how many cigarettes per day: 0 - Alcohol/Substance Use Hx Alcohol Use: No History of Substance Use: reports: None - Social History Usual Living Arrangement: Yes: Alone ADL: Family Assistance History of Recent Travel: No Home Medications - Allergies Allergies/Adverse Reactions: Allergies Allergy/AdvReac Type Severity Reaction Status Date / Time Penicillins Allergy Verified 12/22/19 13:41 - Home Medications Home Medications: Ambulatory Orders Omeprazole 40 mg PO DAILY #1 08/19/11 Amlodipine Besylate [Norvasc -] 5 mg PO DAILY 12/07/14 Aspirin Coated [Ecotrin -] 81 mg PO DAILY #0 12/07/14 Calcium Carbonate/Vitamin D3 [Calcium 600-Vit D3 200 Tablet] 1 each PO DAILY 12/07/14 Cholecalciferol (Vitamin D3) [Vitamin D3] 1,000 unit PO DAILY 12/07/14 FA/Mv,Ca,Iron,Min/Lycopene/Lut [Centrum Tablet] 1 each PO DAILY 12/07/14 Sennosides [Senna -] 1 tab PO DAILY 12/07/14 Simvastatin [Zocor -] 5 mg PO HS 12/07/14 Sotalol HCl [Sotalol] 80 mg PO BID 12/07/14 Irbesartan/Hydrochlorothiazide [Irbesartan-Hctz 150-12.5 mg Tb] 1 each PO DAILY 12/22/19 Family Medical History Family History: Unremarkable Review of Systems - Review of Systems Constitutional: reports: No Symptoms Eyes: reports: No Symptoms HENT: reports: No Symptoms Neck: reports: No Symptoms Cardiovascular: reports: No Symptoms Respiratory: reports: No Symptoms Gastrointestinal: reports: No Symptoms Genitourinary: reports: No Symptoms Breasts: reports: No Symptoms Reported Musculoskeletal: reports: Extremity Pain, Muscle Weakness Integumentary: reports: No Symptoms Neurological: reports: No Symptoms Endocrine: reports: No Symptoms Hematology/Lymphatic: reports: No Symptoms Psychiatric: reports: No Symptoms Physical Examination Vital Signs: Vital Signs Temperature 97.7 F 12/23/19 09:18 Pulse Rate 70 12/23/19 09:18 Respiratory Rate 18 12/23/19 09:18 Blood Pressure 109/66 12/23/19 09:18 O2 Sat by Pulse Oximetry (%) 95 12/23/19 09:18 Findings/Remarks: skin--ecchymosis of Lt frontal area eyes--EOMI; midline oral--no droop neck--no nayely tenderness lungs--clear heart--RR breasts--deferred exam abd--benign ext--no CCE; degen changes; pulses present; no ischemic changes; LUE in a splint neuro--alert; verbal coherent; speech is fluent, follows commands; moves all extrems ``````````````````````````````````````````````````````` Laboratory Results - last 24 hr 12/22/19 12/22/19 12/22/19 16:40 16:40 16:40 WBC 7.3 RBC 4.32 Hgb 12.7 Hct 37.1 MCV 85.8 MCH 29.3 MCHC 34.2 RDW 15.7 H Plt Count 189 MPV 7.9 Absolute Neuts (auto) 6.3 Neutrophils % 85.4 H D Lymphocytes % 8.1 D Monocytes % 5.8 Eosinophils % 0.4 D Basophils % 0.3 Nucleated RBC % 0 PT with INR 11.40 INR 0.97 PTT (Actin FS) 28.3 Sodium 137 Potassium 3.8 Chloride 104 Carbon Dioxide 24 Anion Gap 10 BUN 15.7 Creatinine 0.5 L Est GFR (CKD-EPI)AfAm 101.57 Est GFR (CKD-EPI)NonAf 87.64 Random Glucose 93 Calcium 10.2 H Magnesium Total Bilirubin 0.8 AST 25 ALT 30 Alkaline Phosphatase 110 Total Protein 6.5 Albumin 4.0 TSH Blood Type Antibody Screen 12/22/19 12/23/19 12/23/19 16:40 06:30 06:30 WBC 4.3 RBC 3.92 Hgb 11.7 Hct 33.7 MCV 85.8 MCH 29.8 MCHC 34.7 RDW 15.6 Plt Count 157 MPV 7.6 Absolute Neuts (auto) Neutrophils % Lymphocytes % Monocytes % Eosinophils % Basophils % Nucleated RBC % PT with INR INR PTT (Actin FS) Sodium 137 Potassium 3.9 Chloride 103 Carbon Dioxide 25 Anion Gap 10 BUN 18.8 H Creatinine 0.6 Est GFR (CKD-EPI)AfAm 95.66 Est GFR (CKD-EPI)NonAf 82.53 Random Glucose 80 Calcium 9.4 Magnesium 2.4 Total Bilirubin AST ALT Alkaline Phosphatase Total Protein Albumin TSH 1.04 Blood Type O POSITIVE Antibody Screen Negative Labs: CBC, BMP 12/23/19 06:30 12/23/19 06:30 Imaging - Results X-ray: Report Reviewed Cat Scan: Report Reviewed Problem List - Problems (1) Colles' fracture of left radius Assessment/Plan: closed; [id number] in ER and splinted Code(s): S52.532A - COLLES' FRACTURE OF LEFT RADIUS, INIT FOR CLOS FX Qualifiers: Encounter type: initial encounter Fracture type: closed Qualified Code(s): S52.532A - Colles' fracture of left radius, initial encounter for closed fracture (2) Pelvic fracture Assessment/Plan: as described in CT report Code(s): S32.9XXA - FRACTURE OF UNSP PARTS OF LUMBOSACRAL SPINE AND PELVIS, INIT Qualifiers: Encounter type: initial encounter Laterality: left (3) Hypertensive arteriosclerotic cardiovascular disease Assessment/Plan: BP meds on hold due to low BP state Code(s): I11.9 - HYPERTENSIVE HEART DISEASE WITHOUT HEART FAILURE (4) Head contusion Assessment/Plan: no sequela; no LOC or concussion Code(s): S00.93XA - CONTUSION OF UNSPECIFIED PART OF HEAD, INITIAL ENCOUNTER Qualifiers: Encounter type: initial encounter Laterality: left (5) Hip pain, left Assessment/Plan: no Hip Fx reported; likely 2nd Lt sided pelvic Fx Code(s): M25.552 - PAIN IN LEFT HIP (6) Lipidemia Assessment/Plan: controlled with low dose statin Code(s): E78.5 - HYPERLIPIDEMIA, UNSPECIFIED Qualifiers: Hyperlipidemia type: pure hypercholesterolemia Qualified Code(s): E78.00 - Pure hypercholesterolemia, unspecified; E78.0 - Pure hypercholesterolemia (7) Osteoporosis Assessment/Plan: by DXA; on biphosphonate as OP Code(s): M81.0 - AGE-RELATED OSTEOPOROSIS W/O CURRENT PATHOLOGICAL FRACTURE Qualifiers: Osteoporosis type: age-related (8) Hyperparathyroidism Assessment/Plan: primary; not surgical candidate Code(s): E21.3 - HYPERPARATHYROIDISM, UNSPECIFIED (9) Pacemaker Assessment/Plan: stable Code(s): Z95.0 - PRESENCE OF CARDIAC PACEMAKER (10) History of falling Assessment/Plan: 2nd gait imbalance; no major injuries incurred so far. Code(s): Z91.81 - HISTORY OF FALLING (11) Elderly person living alone Assessment/Plan: has been able to c arry out most of her daily living actibities prior to this incident; now status uncertain. Will need short term rehab for FX and then will need to reassess degree of functionality. Code(s): Z60.2 - PROBLEMS RELATED TO LIVING ALONE Assessment/Plan frail 84 YO F with various co-morbidities; prone to falls, now s/p Lt wrist Fx and pelvic Fx as described. Mgmt as described above. ~~~~~~~~~~~~~~~~~~~~~~~~~~~~ Dr Singh
[2019-12-23] MEDS: POLYETHYLENE GLYCOL 3350 119 GM BTL PO SCH (16:42)
[2019-12-23] MEDS ORDERED: PT OWN MED DRAWER 7, Y5N ONE ×2 (16:44→22:36)
[2019-12-23] MEDS ORDERED: diphenhydrAMINE HCL 25 MG CAPSULE (FP) PO PRN (18:03)
[2019-12-23] MEDS: NAPROXEN 250 MG TABLET PO SCH (22:45)
[2019-12-23] MEDS: DOCUSATE SODIUM 100 MG CAPSULE (FP) PO SCH (22:45)
[2019-12-24] MEDS: DEXTROSE 5%-0.45% SALINE 1,000 ML IV SCH ×2 (06:47→21:18)
[2019-12-24 07:54] LABS: HEMATOCRIT 35.4 % (32.4-45.2); HEMOGLOBIN 12.2 GM/dL (10.7-15.3); MCH 29.6 pg (25.7-33.7); MCHC 34.4 g/dl (32.0-36.0); MEAN PLT VOLUME 7.5 fl (7.5-11.1); PLATELET COUNT 155 K/MM3 (134-434); RBC 4.12 M/mm3 (3.60-5.2); RDW 15.6 % (11.6-15.6)
[2019-12-24 08:23] LABS: BLOOD UREA NITROGEN 10.2 mg/dL (7-18); CALCIUM 8.9 mg/dL (8.5-10.1); CREATININE 0.5 mg/dL (0.55-1.3); POTASSIUM 3.6 mmol/L (3.5-5.1)
[2019-12-24] MEDS ORDERED: PT OWN MED DRAWER 7, Y5N ONE ×2 (09:58→19:53)
[2019-12-24] MEDS: SOTALOL HCL 80 MG TABLET (FP) PO SCH ×2 (10:08→21:03)
[2019-12-24] MEDS: POLYETHYLENE GLYCOL 3350 119 GM BTL PO SCH (10:09)
[2019-12-24] MEDS: DOCUSATE SODIUM 100 MG CAPSULE (FP) PO SCH ×2 (10:09→21:03)
[2019-12-24] MEDS: ENOXAPARIN NA (PORCINE) 40 MG/0.4 ML DISP.SYRIN SQ SCH (10:09)
[2019-12-24] MEDS: NAPROXEN 250 MG TABLET PO SCH ×3 (10:10→21:31)
[2019-12-24] MEDS: PANTOPRAZOLE 40 MG TABLET PO SCH (10:10)
--- NOTE | 2019-12-24 17:02 | DS ---
Physical Examination Vital Signs: Vital Signs Temperature 98.0 F 12/24/19 14:38 Pulse Rate 65 12/24/19 14:38 Respiratory Rate 20 12/24/19 14:38 Blood Pressure 136/67 12/24/19 14:38 O2 Sat by Pulse Oximetry (%) 96 12/24/19 09:00 Findings/Remarks: skin--no lesion appreciated eyes--midline; eomi neck--non soft tissue tenderness lungs--grossly heart--RR abd--benign; tenderness above Lt groin ext--no edema; no soft tissue tenderness in either leg; ROM of the foot, knee and hip is not painful neuro--alert, verbal; coherent to baseline; follows commands well; no gross focal deficit Laboratory Results - last 24 hr 12/23/19 12/24/19 12/24/19 06:10 06:55 06:55 WBC 4.0 RBC 4.12 Hgb 12.2 Hct 35.4 MCV 86.0 MCH 29.6 MCHC 34.4 RDW 15.6 Plt Count 155 MPV 7.5 Sodium 136 Potassium 3.6 Chloride 104 Carbon Dioxide 25 Anion Gap 7 L BUN 10.2 Creatinine 0.5 L Est GFR (CKD-EPI)AfAm 101.57 Est GFR (CKD-EPI)NonAf 87.64 Random Glucose 125 H Calcium 8.9 COVID-19 (SHUKRI) Not detected Labs: CBC, BMP 12/24/19 06:55 12/24/19 06:55 Discharge Summary Problems reviewed: Yes Reason For Visit: FRACTURE OF LEFT WRIST, FALL FROM GROUND LEVEL, Current Active Problems Colles' fracture of left radius (Acute) Deformity of left wrist (Acute) Elderly person living alone (Acute) GERD gait abnormality History of falling (Acute) Hyperparathyroidism (Acute) Hypertensive arteriosclerotic cardiovascular disease (Acute) Lipidemia (Acute) Osteoporosis (Acute) Pacemaker (Acute) old RBBB Pelvic fracture (Acute) old Lt frontal lobe encephalomalacia Hx of insomnia chronic Rt shoulder derangement (rotator cuff dz) 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 She was not able to rise up. Taken to ER found to have a Lt wrist Fx and Fx of the Lt pubic ramus. She was unable to walk and c/o pain. She was otherwise stable in terms of her medical conditions and vitals. She tested negative for COVID. She was placed back on much of her meds. Health Concerns: risk for decubiti Plan of Treatment: PT & OT Goals: ambulation Condition: Stable - Instructions Diet, Activity, Other Instructions: Low salt diet Check BP daily; hold Norvasc if SBP under 100 start: Losartan if SBP over 150 PT & OT eval add nutritional drinks if appetite is poor. Referrals: Reji Singh MD [Primary Care Provider] - Disposition: INTERMEDIATE FACILITY - Home Medications Comprehensive Discharge Medication List: Ambulatory Orders Omeprazole 40 mg PO DAILY #1 08/19/11 Amlodipine Besylate [Norvasc -] 5 mg PO DAILY 12/07/14 Aspirin Coated [Ecotrin -] 81 mg PO DAILY #0 12/07/14 Cholecalciferol (Vitamin D3) [Vitamin D3] 1,000 unit PO DAILY 12/07/14 FA/Mv,Ca,Iron,Min/Lycopene/Lut [Centrum Tablet] 1 each PO DAILY 12/07/14 Sennosides [Senna -] 1 tab PO DAILY 12/07/14 Simvastatin [Zocor -] 5 mg PO HS 12/07/14 Docusate Sodium [Colace -] 100 mg PO BID capsule 12/24/19 Enoxaparin [Lovenox -] 40 mg SQ DAILY disp.syrin 12/24/19 Hydrocodone/Acetaminophen [Hydrocodon-Acetaminoph 2.5-325] 1 each PO BIDAC PRN #10 tablet MDD 2 12/24/19 Ibuprofen/Diphenhydramine Cit [Advil Pm Caplet] 1 each PO HS #20 tablet 12/24/19 Polyethylene Glycol 3350 [Miralax 119 gm Btl -] 17 gm PO DAILY bottle 12/24/19 Sotalol HCl [Betapace -] 40 mg PO BID tablet 12/24/19 Simvastatin 5mg QPM Alendronate 70mg Q week (give 1/2 Hr before giving other meds and while seated up).
[2019-12-25] MEDS ORDERED: PT OWN MED DRAWER 7, Y5N ONE (10:14)
[2019-12-25] MEDS: SOTALOL HCL 80 MG TABLET (FP) PO SCH (10:19)
[2019-12-25] MEDS: NAPROXEN 250 MG TABLET PO SCH (10:20)
[2019-12-25] MEDS: DOCUSATE SODIUM 100 MG CAPSULE (FP) PO SCH (10:20)
[2019-12-25] MEDS: PANTOPRAZOLE 40 MG TABLET PO SCH (10:20)
[2019-12-25] MEDS: ENOXAPARIN NA (PORCINE) 40 MG/0.4 ML DISP.SYRIN SQ SCH (10:22)
[2019-12-25] MEDS: POLYETHYLENE GLYCOL 3350 119 GM BTL PO SCH (10:33)
[2019-12-25 14:42] VITALS: BP 148/79; PULSE 67; TEMP 98
--- NOTE | 2019-12-25 15:25 | PN ---
Progress Note (short form) - Note Progress Note: >>>>>>>>>>>>>>>> Addendum to d/c <<<<<<<<<<<<<<<<<<<<<< Discharge not yet approved by insurance Active Medications Diphenhydramine HCl (Benadryl -) 25 mg PO HS PRN PRN Reason: FOR SLEEP Last Admin: 12/24/19 21:03 Dose: 25 mg Documented by: Docusate Sodium (Colace -) 100 mg PO BID [facility] Last Admin: 12/25/19 10:20 Dose: 100 mg Documented by: Enoxaparin Sodium (Lovenox -) 40 mg SQ DAILY [facility] Last Admin: 12/25/19 10:22 Dose: 40 mg Documented by: HCTZ/Losartan Potassium (Hyzaar -) 1 tab PO DAILY [facility] Last Admin: 12/23/19 12:04 Dose: Not Given Documented by: Hydromorphone HCl (Dilaudid -) 2 mg PO Q8H PRN PRN Reason: PAIN LEVEL 6-10 Last Admin: 12/23/19 04:50 Dose: 2 mg Documented by: Dextrose/Sodium Chloride (D5-1/2ns -) 1,000 mls @ 75 mls/hr IV ASDIR [facility] Last Admin: 12/24/19 21:18 Dose: 75 mls/hr Documented by: Naproxen (Naprosyn -) 250 mg PO BID [facility] Last Admin: 12/25/19 10:20 Dose: 250 mg Documented by: Pantoprazole Sodium (Protonix -) 40 mg PO DAILY [facility] Last Admin: 12/25/19 10:20 Dose: 40 mg Documented by: Polyethylene Glycol (Miralax (For Daily Use) -) 17 gm PO DAILY [facility] Last Admin: 12/24/19 10:09 Dose: 17 grams Documented by: Sotalol HCl (Betapace -) 40 mg PO BID [facility] Last Admin: 12/25/19 10:19 Dose: 40 mg Documented by: Vital Signs Temperature 98.0 F 12/25/19 14:41 Pulse Rate 67 12/25/19 14:41 Respiratory Rate 18 12/25/19 14:41 Blood Pressure 148/79 12/25/19 14:41 O2 Sat by Pulse Oximetry (%) 95 08/20/20 10:18 CC: no new issues ````````````````````` skin--no acute lesions appreciated eyes--midline heart--RR abd--soft, NT ext--no edema; able to flex knees w/o pain neuro--no deficits ````````````````````````` Summ > Pelvic Fx --as described; cleared for d/c to SNF for rehab > Lt wrist Fx--s/p closed reduction; will need PT & OT as the RUE capability is already limited due to Rt shoulder derangement > HTN--BP in reasonable range to date; advised SNF staff to adjust BP meds as needed > Constipation--had small BM today ~~~~~~~~~~~~~~~~~~~~~~~~~~ END Dr Singh Problem List - Problems (1) Colles' fracture of left radius Code(s): S52.532A - COLLES' FRACTURE OF LEFT RADIUS, INIT FOR CLOS FX Qualifiers: Encounter type: initial encounter Fracture type: closed Qualified Code(s): S52.532A - Colles' fracture of left radius, initial encounter for closed fracture (2) Pelvic fracture Code(s): S32.9XXA - FRACTURE OF UNSP PARTS OF LUMBOSACRAL SPINE AND PELVIS, INIT Qualifiers: Encounter type: initial encounter Laterality: left (3) Hypertensive arteriosclerotic cardiovascular disease Code(s): I11.9 - HYPERTENSIVE HEART DISEASE WITHOUT HEART FAILURE (4) Head contusion Code(s): S00.93XA - CONTUSION OF UNSPECIFIED PART OF HEAD, INITIAL ENCOUNTER Qualifiers: Encounter type: initial encounter Laterality: left (5) Hip pain, left Code(s): M25.552 - PAIN IN LEFT HIP (6) Lipidemia Code(s): E78.5 - HYPERLIPIDEMIA, UNSPECIFIED Qualifiers: Hyperlipidemia type: pure hypercholesterolemia Qualified Code(s): E78.00 - Pure hypercholesterolemia, unspecified; E78.0 - Pure hypercholesterolemia (7) Osteoporosis Code(s): M81.0 - AGE-RELATED OSTEOPOROSIS W/O CURRENT PATHOLOGICAL FRACTURE Qualifiers: Osteoporosis type: age-related (8) Hyperparathyroidism Code(s): E21.3 - HYPERPARATHYROIDISM, UNSPECIFIED (9) Pacemaker Code(s): Z95.0 - PRESENCE OF CARDIAC PACEMAKER (10) History of falling Code(s): Z91.81 - HISTORY OF FALLING (11) Elderly person living alone Code(s): Z60.2 - PROBLEMS RELATED TO LIVING ALONE
[2019-12-25] MEDS: DEXTROSE 5%-0.45% SALINE 1,000 ML IV SCH (16:34)
== END 2019-12-25 18:57 | DRG 536 ==
LOC: SUPCPDRO 13:36 → JERFT 13:36 → JER 13:36 → JERBED 23:04 → J6S 12-23 07:12
PROVIDERS: ADMIT Internal Medicine; ATTEND Internal Medicine
PROC: 0PSJXZZ Reposition Left Radius, External Approach (ICD-10-PCS; principal; 2019-12-22)
DX: S32.592A Other specified fracture of left pubis, initial encounter for closed fracture (principal); S52.532A Colles' fracture of left radius, initial encounter for closed fracture; D25.9 Leiomyoma of uterus, unspecified; I25.10 Atherosclerotic heart disease of native coronary artery without angina pectoris; S00.93XA Contusion of unspecified part of head, initial encounter; E78.5 Hyperlipidemia, unspecified; E05.90 Thyrotoxicosis, unspecified without thyrotoxic crisis or storm; I11.9 Hypertensive heart disease without heart failure; K21.9 Gastro-esophageal reflux disease without esophagitis; I45.10 Unspecified right bundle-branch block; M81.0 Age-related osteoporosis without current pathological fracture; F41.9 Anxiety disorder, unspecified; Y92.038 Other place in apartment as the place of occurrence of the external cause; W01.0XXA Fall on same level from slipping, tripping and stumbling without subsequent striking against object, initial encounter; Z86.73 Personal history of transient ischemic attack (TIA), and cerebral infarction without residual deficits; Z95.0 Presence of cardiac pacemaker; Z91.81 History of falling; Z60.2 Problems related to living alone
CPT/HCPCS: 36415; 70450-TC; 71045-TC-FY; 72125-TC; 73110-TC-LT-FY; 73130-TC-LT-FY; 73523-TC-FY; 73700-TC-RT; 80048; 80053; 83735; 84443; 85025; 85027; 85610; 85730; 86850; 86900; 86901; 93005; 93010; 97116-GP; 97162-GP; 99285-25; U0003

== ENCOUNTER 2021-09-12 04:16 | Day surgery (SDC) | payer OTHER, MEDICARE ==
[2021-09-08 15:39] VITALS: BMI 21.4
[2021-09-12] MEDS ORDERED: BUPIVACAINE HCL/PF 0.25% (2.5MG/ML) 10 ML VIAL ONE (08:37)
[2021-09-12] MEDS ORDERED: LIDOCAINE HCL 1%, 10 MG/ML (20ML VIAL) ONE (08:37)
[2021-09-12] MEDS ORDERED: DEXMEDETOMIDINE HCL 200 MCG/2 ML IVPB ONE (10:03)
[2021-09-12] MEDS ORDERED: ACETAMINOPHEN INJECTION 100 ML IVPB ONE (10:03)
[2021-09-12] MEDS ORDERED: VANCOMYCIN 500 MG VIAL (RESTRICTED TO ID ONLY) IVPB ONE (16:20)
[2021-09-12] MEDS ORDERED: LIDOCAINE HCL 1%, 10 MG/ML (20ML VIAL) SQ ONE (16:38)
[2021-09-12] MEDS ORDERED: BUPIVACAINE HCL/PF 0.25% (2.5MG/ML) 10 ML VIAL IJ ONE (16:38)
[2021-09-12] MEDS ORDERED: VANCOMYCIN 1,000 MG VIAL (RESTRICTED TO ID ONLY) ONE (16:45)
[2021-09-12] MEDS ORDERED: SODIUM CHLORIDE 0.9% P/F 10 ML VIAL IJ ONE (16:46)
[2021-09-12 19:12] VITALS: TEMP 97.9
[2021-09-12 19:13] VITALS: BP 160/74; PULSE 62
== END 2021-09-12 18:25 | disposition home or self-care (01) ==
LOC: JASU-SURG 04:16
PROVIDERS: ATTEND Internal Medicine
PROC: 0JH606Z Insertion of Pacemaker, Dual Chamber into Chest Subcutaneous Tissue and Fascia, Open Approach (ICD-10-PCS; 2021-09-12)
PROC: 0JPT0PZ Removal of Cardiac Rhythm Related Device from Trunk Subcutaneous Tissue and Fascia, Open Approach (ICD-10-PCS; principal; 2021-09-12 16:12)
DX: Z45.010 Encounter for checking and testing of cardiac pacemaker pulse generator [battery] (principal)
CPT/HCPCS: 33228; C1785; 94760

== ENCOUNTER 2022-07-16 14:12 | Inpatient (IN) | payer OTHER, MEDICARE ==
[2022-07-16 14:19] VITALS: BMI 20.5
[2022-07-16] MEDS ORDERED: SODIUM CHLORIDE 500 ML IV STA (16:27)
[2022-07-16 16:37] LABS: BASO % 0.4 % (0-2.0); EOS % 0.9 % (0-4.5); HEMATOCRIT 37.5 % (32.4-45.2); HEMOGLOBIN 12.7 GM/dL (10.7-15.3); LYMPH % 12.6 % (8-40); MCH 26.6 pg (25.7-33.7); MCHC 33.8 g/dl (32.0-36.0); MEAN CELL VOLUME 78.6 fl (80-96); MEAN PLT VOLUME 7.4 fl (7.5-11.1); MONO % 10.8 % (3.8-10.2); NEUT % 75.3 % (42.8-82.8); PLATELET COUNT 245 10^3/uL (134-434); RBC 4.77 M/mm3 (3.60-5.2); RDW 15.2 % (11.6-15.6); WHITE BLOOD COUNT 5.7 K/mm3 (4.0-10.0)
[2022-07-16 17:00] LABS: ALBUMIN 3.5 g/dl (3.4-5.0); BLOOD UREA NITROGEN 12.9 mg/dL (7-18); CALCIUM 9.6 mg/dL (8.5-10.1)
[2022-07-16 17:03] LABS: CREATININE 0.5 mg/dL (0.55-1.3)
[2022-07-16 17:05] LABS: BILIRUBIN,TOTAL 0.7 mg/dL (0.2-1); TOT PROT 6.5 g/dl (6.4-8.2)
[2022-07-16] MEDS ORDERED: DEXTROSE 5%-0.45% SALINE 1,000 ML IV SCH (21:15)
[2022-07-17 02:58] LABS: PH,URINE 7.5 (5.0-8.0); URINE APPEARANCE Cloudy; URINE BILIRUBIN Negative (NEGATIVE); URINE COLOR Yellow; URINE GLUCOSE (UA) Negative (NEGATIVE); URINE KETONE Trace (NEGATIVE); URINE LEUK ESTERASE Negative (NEGATIVE); URINE NITRITE Negative (NEGATIVE); URINE PROTEIN Negative (NEGATIVE)
[2022-07-17 07:10] LABS: BASO % 0.4 % (0-2.0); EOS % 0.9 % (0-4.5); HEMATOCRIT 34.5 % (32.4-45.2); LYMPH % 12.6 % (8-40); MCH 27.6 pg (25.7-33.7); MCHC 34.9 g/dl (32.0-36.0); MEAN CELL VOLUME 79.1 fl (80-96); MEAN PLT VOLUME 7.5 fl (7.5-11.1); MONO % 7.6 % (3.8-10.2); NEUT % 78.5 % (42.8-82.8); PLATELET COUNT 248 10^3/uL (134-434); RBC 4.36 M/mm3 (3.60-5.2); RDW 15.4 % (11.6-15.6); WHITE BLOOD COUNT 8.1 K/mm3 (4.0-10.0)
[2022-07-17 07:31] LABS: CALCIUM 8.5 mg/dL (8.5-10.1)
[2022-07-17 07:32] LABS: ALBUMIN 3.1 g/dl (3.4-5.0)
[2022-07-17 07:35] LABS: CREATININE 0.5 mg/dL (0.55-1.3)
[2022-07-17 07:36] LABS: BILIRUBIN,TOTAL 0.7 mg/dL (0.2-1); TOT PROT 5.9 g/dl (6.4-8.2)
[2022-07-17] MEDS ORDERED: ACETAMINOPHEN 1000 MG/100 ML BAG IVPB PRN ×2 (11:47→14:52)
[2022-07-17] MEDS ORDERED: D5-1/2NS+20 MEQ KCL - 20 MEQ/1,000 ML INFUS.BAG IV SCH (15:00)
[2022-07-17] MEDS ORDERED: LIDOCAINE HCL 2% JELLY (5 ML/TUBE) TP ONE (22:38)
[2022-07-18 09:59] LABS: BASO % 0.3 % (0-2.0); HEMATOCRIT 37.8 % (32.4-45.2); HEMOGLOBIN 12.7 GM/dL (10.7-15.3); LYMPH % 8.5 % (8-40); MCH 27.1 pg (25.7-33.7); MCHC 33.5 g/dl (32.0-36.0); MEAN CELL VOLUME 80.8 fl (80-96); MEAN PLT VOLUME 7.2 fl (7.5-11.1); MONO % 7.6 % (3.8-10.2); NEUT % 82.6 % (42.8-82.8); PLATELET COUNT 252 10^3/uL (134-434); RBC 4.68 M/mm3 (3.60-5.2); RDW 15.7 % (11.6-15.6); WHITE BLOOD COUNT 6.4 K/mm3 (4.0-10.0)
[2022-07-18 10:22] LABS: CHLORIDE 104 mmol/L (98-107); SODIUM 141 mmol/L (136-145)
[2022-07-18 10:26] LABS: BLOOD UREA NITROGEN 4.5 mg/dL (7-18); CO2 26 mmol/L (21-32); GLUCOSE,RANDOM 82 mg/dL (74-106)
[2022-07-18 10:28] LABS: CALCIUM 8.9 mg/dL (8.5-10.1); MAGNESIUM 1.9 mg/dL (1.8-2.4); PHOSPHOROUS 2.4 mg/dL (2.5-4.9)
[2022-07-18 10:29] LABS: CREATININE 0.4 mg/dL (0.55-1.3)
[2022-07-18 10:31] LABS: ANION GAP 12 MMOL/L (8-16)
[2022-07-18] MEDS: ENOXAPARIN NA (PORCINE) 40 MG/0.4 ML DISP.SYRIN SQ SCH ×2 (11:10→23:32)
[2022-07-18] MEDS: KCL 10 MEQ IVPB 10 MEQ/100 ML INFUS.BAG IVPB SCH ×3 (11:23→13:53)
[2022-07-18] MEDS ORDERED: MEROPENEM 1 GM in DEXTROSE 5%-WATER 100 ML IVPB ONE (11:27)
[2022-07-18] MEDS: D5-1/2NS+20 MEQ KCL - 20 MEQ/1,000 ML INFUS.BAG IV SCH (12:23)
[2022-07-18] MEDS: MEROPENEM 1 GM in DEXTROSE 5%-WATER 100 ML IVPB SCH ×2 (15:03→22:29)
[2022-07-18] MEDS ORDERED: ATORVASTATIN CA 10 MG TABLET (FP) PO SCH (22:00)
[2022-07-18] MEDS: SOTALOL HCL 80 MG TABLET (FP) PO SCH (22:30)
[2022-07-19] MEDS: MEROPENEM 1 GM in DEXTROSE 5%-WATER 100 ML IVPB SCH ×3 (02:00→18:44)
[2022-07-19] MEDS: D5-1/2NS+20 MEQ KCL - 20 MEQ/1,000 ML INFUS.BAG IV SCH ×2 (08:08→11:35)
[2022-07-19 11:11] LABS: BASO % 0.5 % (0-2.0); EOS % 1.8 % (0-4.5); HEMATOCRIT 33.6 % (32.4-45.2); HEMOGLOBIN 11.8 GM/dL (10.7-15.3); MCH 27.9 pg (25.7-33.7); MCHC 35.1 g/dl (32.0-36.0); MEAN CELL VOLUME 79.6 fl (80-96); MEAN PLT VOLUME 7.2 fl (7.5-11.1); MONO % 8.7 % (3.8-10.2); PLATELET COUNT 261 10^3/uL (134-434); RBC 4.22 M/mm3 (3.60-5.2); RDW 15.4 % (11.6-15.6); WHITE BLOOD COUNT 5.9 K/mm3 (4.0-10.0)
[2022-07-19] MEDS: ENOXAPARIN NA (PORCINE) 40 MG/0.4 ML DISP.SYRIN SQ SCH (11:12)
[2022-07-19] MEDS: amLODIPine BESYLATE 5 MG TABLET (FP) PO SCH (11:12)
[2022-07-19] MEDS: SOTALOL HCL 80 MG TABLET (FP) PO SCH ×2 (11:12→22:40)
[2022-07-19 11:23] LABS: CHLORIDE 106 mmol/L (98-107); SODIUM 139 mmol/L (136-145)
[2022-07-19 11:29] LABS: CALCIUM 8.5 mg/dL (8.5-10.1); CO2 26 mmol/L (21-32); GLUCOSE,RANDOM 106 mg/dL (74-106); MAGNESIUM 1.8 mg/dL (1.8-2.4)
[2022-07-19 11:30] LABS: BLOOD UREA NITROGEN 4.5 mg/dL (7-18)
[2022-07-19 11:32] LABS: CREATININE 0.4 mg/dL (0.55-1.3)
[2022-07-19 11:39] LABS: ANION GAP 7 MMOL/L (8-16)
[2022-07-19] MEDS: KCL 10 MEQ IVPB 10 MEQ/100 ML INFUS.BAG IVPB SCH ×4 (12:24→16:22)
[2022-07-19 21:10] LABS: CALCIUM 8.7 mg/dL (8.5-10.1)
[2022-07-19 21:14] LABS: CREATININE 0.4 mg/dL (0.55-1.3)
[2022-07-20] MEDS: MEROPENEM 1 GM in DEXTROSE 5%-WATER 100 ML IVPB SCH ×3 (02:00→17:55)
[2022-07-20] MEDS: D5-1/2NS+20 MEQ KCL - 20 MEQ/1,000 ML INFUS.BAG IV SCH ×2 (06:19→12:23)
[2022-07-20 08:57] LABS: BASO % 0.5 % (0-2.0); EOS % 2.1 % (0-4.5); HEMATOCRIT 38.5 % (32.4-45.2); HEMOGLOBIN 13.3 GM/dL (10.7-15.3); MCH 27.7 pg (25.7-33.7); MCHC 34.5 g/dl (32.0-36.0); MEAN CELL VOLUME 80.3 fl (80-96); MONO % 6.1 % (3.8-10.2); NEUT % 80.3 % (42.8-82.8); PLATELET COUNT 279 10^3/uL (134-434); RDW 15.2 % (11.6-15.6); WHITE BLOOD COUNT 6.2 K/mm3 (4.0-10.0)
[2022-07-20 09:10] LABS: CALCIUM 9.3 mg/dL (8.5-10.1); MAGNESIUM 1.8 mg/dL (1.8-2.4)
[2022-07-20 09:14] LABS: CREATININE 0.5 mg/dL (0.55-1.3)
[2022-07-20] MEDS: ENOXAPARIN NA (PORCINE) 40 MG/0.4 ML DISP.SYRIN SQ SCH (11:59)
[2022-07-20] MEDS: amLODIPine BESYLATE 5 MG TABLET (FP) PO SCH (11:59)
[2022-07-20] MEDS: SOTALOL HCL 80 MG TABLET (FP) PO SCH ×2 (11:59→22:13)
[2022-07-21] MEDS: MEROPENEM 1 GM in DEXTROSE 5%-WATER 100 ML IVPB SCH ×2 (02:22→10:19)
[2022-07-21] MEDS: ENOXAPARIN NA (PORCINE) 40 MG/0.4 ML DISP.SYRIN SQ SCH (10:20)
[2022-07-21] MEDS: SOTALOL HCL 80 MG TABLET (FP) PO SCH ×2 (10:21→21:38)
[2022-07-21] MEDS: amLODIPine BESYLATE 5 MG TABLET (FP) PO SCH (10:22)
[2022-07-22] MEDS: ENOXAPARIN NA (PORCINE) 40 MG/0.4 ML DISP.SYRIN SQ SCH (10:31)
[2022-07-22] MEDS: amLODIPine BESYLATE 5 MG TABLET (FP) PO SCH (10:32)
[2022-07-22] MEDS: SOTALOL HCL 80 MG TABLET (FP) PO SCH ×2 (10:35→22:39)
[2022-07-22] MEDS ORDERED: POLYETHYLENE GLYCOL (HEALTHYLAX) 3350 17 GM PACKET PO SCH (10:45)
[2022-07-22 11:22] VITALS: RESP 18
[2022-07-23 04:48] VITALS: BP 139/69; PULSE 70; TEMP 98.7
[2022-07-23] MEDS ORDERED: POLYETHYLENE GLYCOL (HEALTHYLAX) 3350 17 GM PACKET PO SCH (10:00)
[2022-07-23] MEDS: SOTALOL HCL 80 MG TABLET (FP) PO SCH (10:41)
[2022-07-23] MEDS: ENOXAPARIN NA (PORCINE) 40 MG/0.4 ML DISP.SYRIN SQ SCH (10:41)
[2022-07-23] MEDS: amLODIPine BESYLATE 5 MG TABLET (FP) PO SCH (10:41)
[2022-07-23] MEDS ORDERED: SENNOSIDES 8.8 MG/5 ML SYRUP PO SCH (22:00)
== END 2022-07-23 13:00 | disposition home or self-care (01) | DRG 388 ==
LOC: JER 14:12 → JERBED 20:36 → J6S 07-17 19:46
PROVIDERS: ADMIT Internal Medicine; ATTEND Internal Medicine
DX: K56.609 Unspecified intestinal obstruction, unspecified as to partial versus complete obstruction (principal); U07.1 COVID-19; N39.0 Urinary tract infection, site not specified; I25.10 Atherosclerotic heart disease of native coronary artery without angina pectoris; E78.5 Hyperlipidemia, unspecified; K21.9 Gastro-esophageal reflux disease without esophagitis; F41.9 Anxiety disorder, unspecified; K56.7 Ileus, unspecified; B96.89 Other specified bacterial agents as the cause of diseases classified elsewhere; E21.3 Hyperparathyroidism, unspecified; I11.9 Hypertensive heart disease without heart failure; M81.0 Age-related osteoporosis without current pathological fracture; E87.6 Hypokalemia; Z85.038 Personal history of other malignant neoplasm of large intestine; Z86.73 Personal history of transient ischemic attack (TIA), and cerebral infarction without residual deficits; Z95.0 Presence of cardiac pacemaker; Z88.0 Allergy status to penicillin
CPT/HCPCS: 0241U-QW; 36415; 71045-TC-FY; 74018-TC-FY; 74019-TC-FY; 74177-TC; 80048; 80053; 81003; 82728; 83615; 83690; 83735; 84100; 84484; 85025; 85379; 86140; 87086; 87186; 93005; 93010; 97116-GP; 97162-GP; 99285-25